=== PATIENT | male | born 1975 | race Caucasian/White ===

== ENCOUNTER 2019-07-01 11:37 | Inpatient (IN) ==
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
[~2019-07-01 11:37] MED LIST: MISSING PHYSICIAN SIGNATURE ON ORDER SCH
[2019-07-01] MEDS ORDERED: CEFAZOLIN 1000MG 1,000 MG/7.5 ML SYR IV SCH (14:00)
--- NOTE | 2019-07-01 14:07 | History & Physical Bridge Note ---
Date of Service July 01, 2019 History & Physical Bridge Note I have examined the patient, reviewed the History & Physical and in the interval since the performance of the History & Physical I have noted the following changes of clinical significance: no changes noted
[2019-07-01] MEDS ORDERED: MIDAZOLAM HCL 1 MG/ML 2ML VIAL ONE (14:43)
[2019-07-01] MEDS ORDERED: BUPIVACAINE/EPINEPHRINE 0.5% MPF 1:200,000 30 ML VIAL ONE (15:03)
[2019-07-01] MEDS ORDERED: ROPIVACAINE 0.5% 5 MG/ML 30 ML VIAL ONE (15:03)
[2019-07-01] MEDS ORDERED: EPINEPHrine INJ 1 MG/ML AMP ONE (15:04)
--- NOTE | 2019-07-01 15:12 | Anesthesiology Consultation ---
Date of Service July 01, 2019 Assessment & Plan Chart Review Chart Review: Acceptable Risk for Surgery and Patient NOT seen in Pre Admission Testing Consults Requested none ASA ASA2 Proposed Anesthesia Anesthesia Type: General Regional Regional Laterality: Right Site: Popliteal and Adductor Canal Risk / Benefits Reviewed With: PT / POA / Parent / Guardian, Accepts Plan and Informed Consent Obtained History Surgery Operation Date: 07/01/19 14:10 Proposed Procedures p Right Calcaneus Open Reduction Internal Fixation - Wiley Herrera DO Height/Weight Height: 6 ft 1 in Weight: 74.5 kg Allergies Allergy/AdvReac Type Severity Reaction Status Date / Time No Known Allergies Allergy Verified 07/01/19 12:04 Medications Home Medications Medication Instructions Recorded Confirmed Last Taken acetaminophen [Tylenol] 325 mg PO Q6H PRN 06/30/19 07/01/19 07/01/19 04:40 ibuprofen 200 mg PO Q6H PRN 06/30/19 07/01/19 07/01/19 04:00 NPO Date Last Intake of Fluids: 06/30/19 Time Last Intake of Fluids: 23:00 Date Last Intake of Solids: 06/30/19 Time Last Intake of Solids: 23:00 Past Medical History Medical History Inmate in correctional facility [facility] No known health problems Tobacco abuse Exercise / Class Metabolic Activity II 4-5 Yardwork/Stairs/Walk up hill Past Surgical History Surgical History No history of previous surgery Past Anesthesia History No Hx of Anesthesia Complications and No Family Hx of Anesthesia Complications History of PONV No Hx of PONV and No Hx of Motion Sickness Social History Smoking Status: Former smoker (quit x 1 month) Do You Dip or Chew Tobacco: No Hx Alcohol Use: No Hx Substance Use: No Physical Exam Vital Signs Last Vital Signs Temp 36.7 C 07/01/19 12:07 Pulse 65 07/01/19 12:07 Resp 18 07/01/19 12:07 BP 106/68 07/01/19 12:07 Pulse Ox 98 07/01/19 12:07 Constitutional not obese ENMT Mouth: + edentulous Thyromental Distance: > or= 3.5 Finger Breadths Mallampati Class: II Neck normal visual inspection and trachea midline; neck extension not limited Respiratory normal respiratory effort Auscultation: lungs clear to auscultation bilaterally Cardiovascular Rate/Rhythm: regular rate and regular rhythm Heart Sounds: no murmur Vessels: no carotid bruit Musculoskeletal Spine: normal cervical ROM Neurologic moves all extremities Motor/Sensory: no sensory deficit Psychiatric Orientation: alert and oriented x 3
[2019-07-01] MEDS ORDERED: fentaNYL citrate 100 MCG/2 ML VIAL ONE (15:51)
[2019-07-01] MEDS ORDERED: BUPIVACAINE 0.5 % 5 MG/1 ML MPF 30ML VIAL ONE (16:30)
[2019-07-01] MEDS ORDERED: BACITRACIN INJ 50,000 UNIT VIAL ONE (16:31)
[2019-07-01] MEDS ORDERED: LIDOCAINE HCL 2% 2 ML VIAL/AMP(20MG/ML) INFIL ONE (18:19)
[2019-07-01] MEDS ORDERED: PROPOFOL IV EMULSION 10 MG/ML 20 ML VIAL IV ONE (18:19)
[2019-07-01] MEDS ORDERED: DEXAMETHASONE SOD INJ 4 MG/ML VIAL ONE (18:19)
[2019-07-01] MEDS ORDERED: ONDANSETRON INJ 2 MG/ML 2 ML VIAL ONE (18:19)
--- NOTE | 2019-07-01 18:54 | Fluoroscopy Report ---
INTRAOPERATIVE RADIOGRAPHS CLINICAL HISTORY: Open reduction and internal fixation of the right calcaneus. Fluoroscopy time: 24 seconds. FINDINGS: 3 spot fluoroscopic views of the right heel are presented. There has been buttress plate fi xation of a comminuted calcaneal fracture along the lateral surface. Numerous cortical lag screws tra nsfix the buttress plate. Overlying soft tissue edema and subcutaneous gas are noted. IMPRESSION: Intraoperative images from open reduction and internal fixation of the calcaneus. Electronically signed by: Stoney Leach M.D. 07/01/2019 6:53 PM
[2019-07-01] MEDS ORDERED: NALOXONE HCL 0.4 MG/1 ML VIAL/CARP IV PRN ×2 (19:08→20:13)
[2019-07-01] MEDS ORDERED: PROMETHAZINE HCL 12.5 MG in SODIUM CHLORIDE 0.9% 50 ML IV PRN (19:08)
[2019-07-01] MEDS ORDERED: FLUMAZENIL 0.1 MG/1 ML 10 ML VIAL IV PRN (19:08)
[2019-07-01] MEDS ORDERED: ePHEDrine sulfate 50 MG/ML AMP IV PRN (19:08)
[2019-07-01] MEDS ORDERED: ATROPINE SULFATE 0.1 MG/ML 10ML SYR IV PRN (19:08)
[2019-07-01] MEDS ORDERED: ONDANSETRON INJ 2 MG/ML 2 ML VIAL IV PRN ×2 (19:08→20:13)
--- NOTE | 2019-07-01 19:23 | Post Operative Brief Note ---
Immediate Post Op Note v1 Date of Surgery July 01, 2019 Pre & Post Diagnosis Operation Date: 07/01/19 14:10 Pre-Op Diagnosis: Right Foot comminuted, intra-articular, displaced calcaneus Fracture Post-Op Diagnosis: Right Foot comminuted, intra-articular, displaced calcaneus Fracture I identified the patient and participated in the time-out.: Yes Procedure Operation Date: 07/01/19 14:10 Actual Procedures p Right Calcaneus Open Reduction Internal Fixation(Right) - Wiley Herrera DO Surgeon Wiley Herrera DO Certified Nutritionist Dayo Richardson PA-C Estimated Blood Loss 5 Findings Consistent with Post-Op Diagnosis Specimens None Anesthesia Type General Regional Complications none Disposition Accompanied Patient To Recovery: Yes Disposition: Recovery Room
[2019-07-01] MEDS: HYDROmorphone INJ 1 MG/ML SYRINGE IV PRN ×2 (19:37→19:42)
[2019-07-01] MEDS ORDERED: HYDROmorphone INJ 1 MG/ML SYRINGE ONE (19:37)
--- NOTE | 2019-07-01 19:47 | Anesthesiology Progress Note ---
Date of Service July 01, 2019 Anesthesia Post Procedure Vital Signs Vital Signs: Temp Pulse Pulse Resp BP Pulse Ox 07/01/19 19:40 71 14 112/67 92 07/01/19 19:30 77 19 122/58 L 94 07/01/19 19:24 36.4 C L 85 11 L 117/65 98 07/01/19 12:07 36.7 C 65 18 106/68 98 Pain Intensity Right Foot: Pain Intensity: 7 Right Thigh: Pain Intensity: 6 Transfer of Care Handoff Completed per policy Notes Mental Status: alert / awake / arousable and participated in evaluation Patient Amnestic to Procedure: Yes Nausea / Vomiting: adequately controlled Pain: adequately controlled Airway Patency, RR, SpO2: stable & adequate BP & HR: stable & adequate Hydration State: stable & adequate Anesthetic Complications: no major complications apparent and Pt Satisfied with anesthetic care
[2019-07-01] MEDS ORDERED: bisacodyL 10 MG SUPP PR PRN (20:13)
[2019-07-01] MEDS ORDERED: MAGNESIUM HYDROXIDE SUSP 30 ML UDC PO PRN (20:13)
[2019-07-01] MEDS ORDERED: HYDROmorphone INJ 0.5 MG/0.5 ML SYR IV PRN (20:13)
[2019-07-01] MEDS ORDERED: SODIUM CHLORIDE 0.9% 1000ML 1,000 ML IV SCH (20:13)
[2019-07-01] MEDS ORDERED: INFLUENZA ADMINISTRATION CHARGE ONE (21:45)
[2019-07-01] MEDS ORDERED: INFLUENZA VIRUS QUAD VACCINE 0.5 ML SYR IM ONE (21:45)
[2019-07-01] MEDS: OXYCODONE HCL IR 5 MG TAB (IMMEDIATE RELEASE) PO PRN (21:46)
[2019-07-01] MEDS: ASPIRIN 81 MG ECTAB PO SCH (21:47)
[2019-07-01] MEDS: DOCUSATE SODIUM 100 MG CAP PO SCH (21:47)
[2019-07-01] MEDS: ACETAMINOPHEN 500 MG TAB PO SCH (21:47)
[2019-07-01] MEDS: CEFAZOLIN 1000MG 1,000 MG/7.5 ML SYR IV SCH (23:40)
[2019-07-02] MEDS: OXYCODONE HCL IR 5 MG TAB (IMMEDIATE RELEASE) PO PRN ×5 (02:05→19:22)
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
[2019-07-02] MEDS: ACETAMINOPHEN 500 MG TAB PO SCH ×3 (05:34→21:43)
[2019-07-02 07:23] LABS: Hematocrit (blood only) 33.9 % (42-52); Hemoglobin 11.3 g/dL (14.0-18.0); Mean Corpuscular Hemoglobin 30.9 pg (25-34); Mean Corpuscular Hgb Conc 33.3 g/dL (32-36); Mean Corpuscular Volume 92.6 fL (80-100); Mean Platelet Volume 9.6 fL (7.4-10.4); Platelet Count 182 K/uL (130-400); RDW Standard Deviation 51.2 fL (36.4-46.3); Red Blood Count 3.66 M/uL (4.7-6.1); White Blood Count 9.34 K/uL (4.8-10.8)
[2019-07-02 07:53] LABS: Calcium 8.1 mg/dl (8.5-10.1); Creatinine Clr Calc Pharmacy 102.4 ml/min; Est GFR (African American) 107.9; Est GFR (Non-African American) 93.1; Potassium 3.8 mmol/L (3.5-5.1)
[2019-07-02] MEDS: MULTIVITAMIN TAB PO SCH (08:49)
[2019-07-02] MEDS: ASPIRIN 81 MG ECTAB PO SCH ×2 (08:49→20:14)
[2019-07-02] MEDS: DOCUSATE SODIUM 100 MG CAP PO SCH ×2 (08:49→20:15)
[2019-07-02] MEDS: CEFAZOLIN 1000MG 1,000 MG/7.5 ML SYR IV SCH (08:51)
--- NOTE | 2019-07-02 11:06 | Orthopedic Progress Note ---
Date of Service July 02, 2019 Assessment & Plan (1) Right calcaneal fracture: Postop day 1 status post ORIF right calcaneus fracture We will make adjustments to his pain medication trying to consent to better control for him. Nonweightbearing right lower extremity Aspirin for DVT prophylaxis Possible DC tomorrow if pain better controlled Subjective Significant amount of pain in the right foot. Currently uncontrolled by the pain medication. Physical Exam Physical Exam: Right lower extremity: Bulky Contreras splint is intact. Cap refill is less than 2 seconds toes. Light touch sensation toes intact. He is able to move the toes. Results & Data Vital Signs (Past 12 Hours) Vital Signs Temp Pulse Pulse Resp BP Pulse Ox 07/02/19 07:45 36.8 C 67 18 108/61 99 07/02/19 03:52 36.7 C 70 18 104/64 98 07/01/19 23:10 36.6 C 76 16 104/63 97
[2019-07-02] MEDS: KETOROLAC 30 MG/ML VIAL IV SCH ×3 (11:59→23:18)
[2019-07-02] MEDS: HYDROmorphone INJ 1 MG/ML SYRINGE IV PRN ×2 (17:21→21:44)
[2019-07-03] MEDS: OXYCODONE HCL IR 5 MG TAB (IMMEDIATE RELEASE) PO PRN ×4 (00:17→15:44)
[2019-07-03] MEDS: HYDROmorphone INJ 1 MG/ML SYRINGE IV PRN ×3 (02:50→17:58)
[2019-07-03] MEDS: ACETAMINOPHEN 500 MG TAB PO SCH ×3 (05:52→22:11)
[2019-07-03] MEDS: KETOROLAC 30 MG/ML VIAL IV SCH (05:52)
[2019-07-03] MEDS: DOCUSATE SODIUM 100 MG CAP PO SCH ×2 (07:50→20:23)
[2019-07-03] MEDS: MULTIVITAMIN TAB PO SCH (07:51)
[2019-07-03] MEDS: ASPIRIN 81 MG ECTAB PO SCH ×2 (07:51→20:24)
--- NOTE | 2019-07-03 08:52 | Orthopedic Progress Note ---
Date of Service July 03, 2019 Assessment & Plan (1) Right calcaneal fracture: Postop day 2 status post ORIF right calcaneus fracture We will make adjustments to his pain medication trying to consent to better control for him. We will add OxyContin 10 mg p.o. twice daily while here. Pain control be spotty at the correction facility Nonweightbearing right lower extremity Aspirin for DVT prophylaxis Possible DC tomorrow if pain better controlled Subjective Patient sitting up in bed. Awake and alert. States he still having a fair amount of pain and that it feels like something is jabbing him in the back of the leg with his current splint. Elevating the foot does not help. No other complaints at this time. Denies shortness of breath, chest pain, lightheadedness. Physical Exam Physical Exam: Current splint removed. Wound is benign. He had minimal drainage. Mild swelling over the dorsum of the foot and around the wound. No overt erythema. A new posterior splint was applied over a new dressing. Capillary refill is less than 2 seconds. Results & Data Vital Signs (Past 12 Hours) Vital Signs Temp Pulse Pulse Resp BP Pulse Ox 07/03/19 07:25 36.5 C 81 16 120/74 96 07/02/19 22:55 37 C 80 16 129/57 L 96
[2019-07-03] MEDS: OXYCODONE HCL 10 MG TABCR (OXYCONTIN) PO SCH ×2 (09:17→20:23)
[2019-07-03] MEDS: KETOROLAC 30 MG/ML VIAL IV PRN ×2 (13:38→23:57)
[2019-07-04] MEDS: OXYCODONE HCL IR 5 MG TAB (IMMEDIATE RELEASE) PO PRN ×2 (03:16→09:16)
[2019-07-04] MEDS: ACETAMINOPHEN 500 MG TAB PO SCH (06:19)
[2019-07-04] MEDS: HYDROmorphone INJ 1 MG/ML SYRINGE IV PRN ×2 (06:24→10:35)
[2019-07-04] MEDS: KETOROLAC 30 MG/ML VIAL IV PRN (07:50)
[2019-07-04] MEDS: ASPIRIN 81 MG ECTAB PO SCH (07:51)
[2019-07-04] MEDS: OXYCODONE HCL 10 MG TABCR (OXYCONTIN) PO SCH (07:51)
[2019-07-04] MEDS: DOCUSATE SODIUM 100 MG CAP PO SCH (07:51)
[2019-07-04] MEDS: MULTIVITAMIN TAB PO SCH (07:51)
--- NOTE | 2019-07-04 07:57 | Orthopedic Progress Note ---
Date of Service July 04, 2019 Assessment & Plan (1) Right calcaneal fracture: Postop day 3 status post ORIF right calcaneus fracture Medicine adjustment seems to have worked well. We added OxyContin 10 mg p.o. twice daily while here. Will make recommendation to [facility] for pain ma nagement for at least a couple of days. Nonweightbearing right lower extremity Aspirin for DVT prophylaxis D/C today. Subjective Patient sitting up in bed. Pain is better controlled today. Concerned of going back to [facility] and what medicines he may get for pain. Denies shortness of breath, chest pain, lightheadedness. Physical Exam Constitutional: well developed and well nourished; no acute distress ENMT: external ear and nose normal, oropharynx normal Neck: trachea midline, no thyromegaly Respiratory: normal respiratory effort, lungs clear to auscultation Cardiovascular: Rate/Rhythm: regular rate and regular rhythm Gastrointestinal (Abdomen): normal bowel sounds, soft, nontender, no hepatosplenomegaly Musculoskeletal: Right ankle: Splint C/D/I. Toes are mobile. Cap refill < 2 seconds. Skin: no rashes, warm and dry Neurologic: normal touch/pain/proprioception Psychiatric: A+Ox3, euthymic affect Lymphatic: no cervical or axillary lymphadenopathy Results & Data Vital Signs (Past 12 Hours) Vital Signs Temp Pulse Resp BP Pulse Ox 07/04/19 07:43 37.0 C 80 16 111/65 97 07/03/19 23:58 37.7 C H 07/03/19 23:05 38.1 C H 94 H 16 144/69 H 94
--- NOTE | 2019-07-04 09:52 | Anesthesiology Progress Note ---
Date of Service July 04, 2019 Anesthesia Post Procedure Vital Signs Vital Signs: Temp Pulse Pulse Resp BP Pulse Ox 07/04/19 09:33 37.0 C 81 80 16 111/65 97 07/04/19 07:43 37.0 C 80 16 111/65 97 07/03/19 23:58 37.7 C H 07/03/19 23:05 38.1 C H 94 H 16 144/69 H 94 07/03/19 15:31 37.6 C H 92 H 18 115/63 97 Pain Intensity Right Thigh: Pain Intensity: 0 Notes Mental Status: alert / awake / arousable and participated in evaluation Nausea / Vomiting: adequately controlled Pain: adequately controlled Airway Patency, RR, SpO2: stable & adequate BP & HR: stable & adequate Hydration State: stable & adequate Anesthetic Complications: no major complications apparent and Pt Satisfied with anesthetic care
--- NOTE | 2019-07-06 17:30 | Discharge Summary ---
DISCHARGE DIAGNOSIS: Right displaced comminuted intra-articular calcaneus fracture in 4+ parts. CONSULTATIONS: None. COMPLICATIONS: None. PROCEDURES: ORIF right displaced intra-articular comminuted calcaneus fracture with a Biomet ALPS plate and screws by Dr. Herrera on 07/01/2019. BRIEF HISTORY: As dictated in history and physical. HOSPITAL SUMMARY: The patient was admitted on the above-noted date and had the above-noted surgery performed, which he tolerated well. On his first postoperative day, he was having a significant amount of pain in the right foot; currently uncontrolled by the pain medication. Right lower extremity showed a bulky Contreras splint intact. Cap refill was less than 2 seconds. Light touch sensation was intact and he was able to move his toes. Vital signs were stable and he was afebrile. Plans were to make adjustments to his pain medications and to get better pain control. He remained nonweightbearing on the lower extremity and continued aspirin for DVT prophylaxis. By his second postoperative day, he was sitting up in bed, awake and alert and states he was having a fair amount of pain that it felt like something was jabbing him in the back of the leg with his current splint. Elevating the foot did not help. He had no other complaints at that time. Denies shortness of breath, chest pain or lightheadedness. His current splint was removed. His wound was benign. He had minimal drainage. Mild swelling over the dorsum of the foot and around the wound. No overt erythema. Capillary refill is less than 2 seconds and a new posterior splint was applied over a new dressing. Vital signs were stable. OxyContin 10 mg p.o. b.i.d. was added to his pain regimen and he was continued on nonweightbearing and DVT prophylaxis. By his third postoperative day, he had better pain control and he was concerned of what medications he would receive at [facility] when he returned. The splint was clean, dry and intact. Toes were mobile. Capillary refill was less than 2 seconds. Vital signs were stable. He was afebrile. With his pain was better controlled and he was remaining stable it was felt he could be discharged back to [facility] on 07/04/2019. For further review, please see chart. LABORATORY AND X-RAY DATA: As per chart. DISCHARGE INSTRUCTIONS: The patient was discharged to [facility] on 07/04/2019. A note was placed into the discharge instructions for using OxyContin and recommending use of an extended release pain medication for 3-5 days in addition to the Percocet that he was going to be taking. The patient to be nonweightbearing on the right lower extremity. Use walker or crutches for ambulation. Follow current activity recommendations and special care instructions and follow up with Dr. Herrera in 2 weeks. DISCHARGE MEDICATIONS: Acetaminophen 1000 mg p.o. q. 8 hours, aspirin 81 mg p.o. b.i.d., oxycodone 5 mg p.o. q. 4 hours p.r.n., OxyContin 10 mg p.o. b.i.d. Stop taking previous Tylenol and ibuprofen tablets.
== END 2019-07-04 10:49 | DRG 505 ==
LOC: ASU 11:37 → 3N 19:31